=== PATIENT | female | born 1965 | race Caucasian/White ===

== ENCOUNTER 2017-03-19 16:59 | Emergency (ER) | payer MEDICAID ==
[~2017-03-19] VITALS: Ht 152.4 cm; Wt 56.7 kg
[2017-03-19 17:17] VITALS: BP 126/70
--- NOTE | 2017-03-19 18:32 | NUR ---
PATIENT TO BED #GI
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
--- NOTE | 2017-03-19 19:11 | NUR ---
Patient being evaluated by Dr. Casper at bedside.
--- NOTE | 2017-03-19 19:17 | NUR ---
Pt resting comfortably at this time. Family at bedside.
[2017-03-19] MEDS ORDERED: KETOROLAC 30 MG/ML VIAL IM ONE (19:35)
[2017-03-19] MEDS: HYDROcodone/APAP 5/325 MG 1 TAB TAB PO ONE ×2 (19:45→19:47)
[2017-03-19 20:07] VITALS: BP 130/75
--- NOTE | 2017-03-19 20:07 | NUR ---
Patient discharged with v/s stable. Written and verbal after care instructions given and explained. Patient alert, oriented and verbalized understanding of instructions. Ambulatory with steady gait. All questions addressed prior to discharge. ID band removed. Patient advised to follow up with PMD. Rx of NAPROSYN 500 MG, TYLENOL 500 MG given. Patient educated on indication of medication including possible reaction and side effects. Opportunity to ask questions provided and answered.
== END 2017-03-19 20:07 | disposition home or self-care (01) ==
LOC: MED 16:59
DX: S01.112A Laceration without foreign body of left eyelid and periocular area, initial encounter (principal); S63.591A Other specified sprain of right wrist, initial encounter; W18.2XXA Fall in (into) shower or empty bathtub, initial encounter; Y93.F1 Activity, caregiving, bathing; Y92.091 Bathroom in other non-institutional residence as the place of occurrence of the external cause; Y99.8 Other external cause status
CPT/HCPCS: 12011; 29125; 73090; 96372; 99284; J1885